=== PATIENT | male | born 1950 | race Caucasian/White ===

== ENCOUNTER → 2019-08-30 | Outpatient (CLI) | payer MEDICARE, OTHER ==
--- NOTE | 2019-08-30 14:41 | REP ---
Clinical: Cough and rib pain . Comparison: None . Technique: PA and lateral. Findings: Evidence of prior sternotomy and cardiac valve repair. No cardiomegaly. Mediastinum is otherwise within normal limits and without obvious adenopathy. Lung chavarria are clear. No consolidation, effusion, or pneumothorax. Possible old healed left lateral rib fractures. Impression: 1. No acute cardiopulmonary process. 2. Possible non-acute lower left lateral rib fractures. Electronically Signed by Amadeo Reno MD 08/30/2019 02:32 P
== END ==
LOC: M RAD 11:31 → M LAB 11:31
PROVIDERS: ATTEND Physician Assistant
DX: S22.42XA Multiple fractures of ribs, left side, initial encounter for closed fracture (principal); X58.XXXA Exposure to other specified factors, initial encounter; Y92.89 Other specified places as the place of occurrence of the external cause; R07.81 Pleurodynia; R05 Cough

== ENCOUNTER → 2020-10-09 | Outpatient (REF) | payer MEDICARE, OTHER ==
[2020-10-09 13:48] LABS: APPEARANCE, URINE CLEAR (CLEAR); BACTERIA, URINE AUTO NEGATIVE (NEGATIVE); BILIRUBIN, URINE AUTO NEGATIVE (NEGATIVE); BLOOD, URINE BLOOD NEGATIVE (NEGATIVE); COLOR, URINE YELLOW (YELLOW); GLUCOSE, URINE (UA) AUTO NEGATIVE (NEGATIVE); KETONE, URINE AUTO NEGATIVE (NEGATIVE); LEUKOCYTE ESTERASE, URINE AUTO NEGATIVE (NEGATIVE); NITRITE, URINE AUTO NEGATIVE (NEGATIVE); PROTEIN, URINE AUTO NEGATIVE (NEGATIVE); RBC, URINE AUTO 1 /HPF (0-3); SPECIFIC GRAVITY URINE AUTO 1.015 (1.002-1.035); SQUAMOUS EPITHELIAL CELL UR AU 0 /HPF (0-6); UROBILINOGEN, URINE AUTO 0.2 mg/dL (0.0-2.0); WBC, URINE AUTO 0 /HPF (0-3)
== END ==
LOC: M SMT 13:03
PROVIDERS: ATTEND Nurse Practitioner Women's Health
DX: N39.41 Urge incontinence (principal)

== ENCOUNTER 2021-03-20 09:20 | Outpatient (CLI) | payer MEDICARE ==
[~2021-03-20] VITALS: Ht 175.3 cm; Wt 100.3 kg
[~2021-03-20 09:20] MED LIST: ALBUTEROL 90 MCG/ACT 8GM HFA INHALER INH PRN; ALBUTEROL SULFATE 2.5 MG/0.5 ML INH NEB SOLN INH PRN; EPINEPHrine INJ 1 MG/ML 1ML AMP IM PRN; NS 1,000 ML IV SCH; diphenhydrAMINE 50MG/ML VIAL (J1200) IV PRN; methylPREDNISolone 125MG 2ML VIAL IV PRN
[2021-03-20 09:57] VITALS: BP 117/69
[2021-03-20] MEDS ORDERED: ACETAMINOPHEN TAB 650MG DOSE (2X325MG) PO PRN (10:00)
[2021-03-20] MEDS ORDERED: CASIRIVIMAB/IMDEVIMAB 1,200 MG in NS 250 ML IV ONE (10:00)
[2021-03-20 10:27] VITALS: BP 112/65
[2021-03-20 10:57] VITALS: BP 140/74
[2021-03-20 11:57] VITALS: BP 157/72
== END 2021-03-20 11:57 | disposition home or self-care (01) ==
LOC: M OPCLI4PR 09:20
PROVIDERS: ATTEND Physician Assistant
DX: U07.1 COVID-19 (principal)

== ENCOUNTER 2024-11-06 03:35 | Inpatient (IN) | payer MEDICARE ==
[~2024-11-06] VITALS: Ht 170.2 cm; Wt 94.1 kg
[2024-11-06] MEDS ORDERED: LOSA100T46 PO (03:54)
[2024-11-06] MEDS ORDERED: HYDR12.55 PO (03:54)
[2024-11-06] MEDS ORDERED: ASPI81CH33 PO (03:54)
[2024-11-06] MEDS ORDERED: VESI10TA2 PO (03:54)
[2024-11-06 04:33] LABS: BASO # 0.0 10^3/uL (0.0-0.2); BASO % 0.3 % (0.0-1.0); EOS # 0.0 10^3/uL (0.0-0.5); EOS % 0.4 % (0.0-3.0); LYMPH # 1.1 10^3/uL (1.5-5.0); LYMPH % 11.6 % (24.0-44.0); MONO % 34.0 % (2.0-8.0); NEUTROPHILS # 4.9 10^3/uL (1.5-8.5); NEUTROPHILS % 52.3 % (36.0-66.0)
[2024-11-06 04:36] LABS: MONO # 3.2 10^3/uL (0.0-0.8); PLATELET COUNT, AUTOMATED 75 10^3/uL (150-450)
[2024-11-06] MEDS: ACETAMINOPHEN *IV* 1,000 MG in IV 1 EA IV ONE (04:47)
[2024-11-06 04:55] LABS: CALCIUM LEVEL 8.5 MG/DL (8.3-10.6); CARBON DIOXIDE LEVEL 27.0 MMOL/L (20-31); CHLORIDE LEVEL 99.0 MMOL/L (98-107); CREATININE FOR GFR 1.12 MG/DL (0.70-1.30); GLOMERULAR FILTRATION RATE 69.4 (>42); POTASSIUM SERUM 3.7 MMOL/L (3.5-5.1); SODIUM LEVEL 135.0 MMOL/L (136-145)
[2024-11-06 05:02] LABS: C REACTIVE PROTEIN QUANTITATIV 12.95 MG/DL (<1.0)
[2024-11-06] MEDS ORDERED: ISOVUE-370 76% 100 ML VIAL As Ordered ONE (05:50)
[2024-11-06] MEDS: CEFTAROLINE FOSAMIL 600 MG in DEXTROSE 5% (D5W) ADV/MINI-BAG 50 ML IV ONE (06:08)
[2024-11-06] MEDS: NS (Normal Saline) 0.9% 1,000 ML IV ONE (06:08)
[2024-11-06] MEDS: IBUPROFEN 600 MG TAB PO ONE (06:59)
[2024-11-06] MEDS ORDERED: HYDR12.510 PO (07:29)
[2024-11-06] MEDS ORDERED: OFLOSO AD (07:31)
[2024-11-06] MEDS ORDERED: DOXY100C3 PO (07:31)
[2024-11-06] MEDS ORDERED: HOME MED LIST COMPLETE! XX SCH (07:35)
[2024-11-06] MEDS ORDERED: VANCOMYCIN HCL 1,000 MG, VIAL MATE ADAPTER 1 EACH in NS 250 ML IV SCH (08:20)
[2024-11-06] MEDS ORDERED: KETOROLAC 30 MG/ML 1 ML VIAL IV ONE (08:20)
[2024-11-06 08:57] LABS: ALT/SGPT 40.0 U/L (7.0-40); AST/SGOT 51.0 U/L (<34)
[2024-11-06] MEDS: MUPIROCIN 2% OINT 22 GM TUBE TOP SCH (09:00)
[2024-11-06] MEDS ORDERED: PIPERACILLIN/TAZOBACTAM SOD 3.375 GM in DEXTROSE 5% (D5W) ADV/MINI-BAG 50 ML IV SCH (09:00)
[2024-11-06 09:14] LABS: INR 1.33
[2024-11-06] MEDS: NS (Normal Saline) 0.9% 1,000 ML IV SCH (09:36)
[2024-11-06] MEDS: LOSARTAN 50 MG TABLET PO SCH (09:36)
[2024-11-06] MEDS: ASPIRIN 81 MG CHEWABLE TABLET PO SCH (09:37)
[2024-11-06] MEDS: VANCOMYCIN HCL 1,750 MG, VIAL MATE ADAPTER 1 EACH in NS 500 ML IV ONE (09:37)
[2024-11-06 10:21] LABS: CHOLESTEROL LEVEL 140.0 MG/DL (<200); CHOLESTEROL RISK RATIO 5.88 (<5); LDL CHOLESTEROL 88.0 MG/DL (<100); NON-HDL-C 116.2 MG/DL; TRIGLYCERIDES LEVEL 141.0 MG/DL (<150)
[2024-11-06 11:11] LABS: ESTIMATED AVERAGE GLUCOSE 114.0 MG/DL (60-110)
[2024-11-06] MEDS: CIPRODEX OTIC SUSP 7.5 ML AD SCH (11:45)
[2024-11-06] MEDS: PIPERACILLIN/TAZOBACTAM SOD 3.375 GM in DEXTROSE 5% (D5W) ADV/MINI-BAG 50 ML IV SCH (12:01)
[2024-11-06] MEDS: ACETAMINOPHEN 325 MG TAB PO PRN (12:44)
[2024-11-06 20:28] VITALS: BP 120/77; TEMP 98.8; O2SAT 90
[2024-11-06] MEDS: VANCOMYCIN HCL 750 MG, VIAL MATE ADAPTER 1 EACH in NS 250 ML IV SCH (20:57)
[2024-11-06 21:24] VITALS: TEMP 100.1
[2024-11-06] MEDS: AZTREONAM 2 GM in DEXTROSE 5% (D5W) MINI-BAG PLU 100 ML IV SCH (22:29)
[2024-11-07 01:51] VITALS: TEMP 97.6
[2024-11-07 04:02] VITALS: BP 119/80; TEMP 100.3; O2SAT 96
[2024-11-07 06:37] LABS: PLATELET COUNT, AUTOMATED 63 10^3/uL (150-450)
[2024-11-07 06:49] LABS: ALT/SGPT 31 U/L (7.0-40); AST/SGOT 39 U/L (<34); CALCIUM LEVEL 7.8 MG/DL (8.3-10.6); CARBON DIOXIDE LEVEL 29 MMOL/L (20-31); CHLORIDE LEVEL 102 MMOL/L (98-107); CREATININE FOR GFR 0.85 MG/DL (0.70-1.30); GLOMERULAR FILTRATION RATE > 90.0 (>42); POTASSIUM SERUM 3.6 MMOL/L (3.5-5.1); SODIUM LEVEL 138 MMOL/L (136-145)
[2024-11-07] MEDS ORDERED: ENOXAPARIN 40 MG/0.4 ML SYRINGE (J1650 PER 10MG) SC SCH (09:00)
[2024-11-07] MEDS: VANCOMYCIN HCL 1,250 MG, VIAL MATE ADAPTER 1 EACH in NS 250 ML IV SCH (09:40)
[2024-11-07 12:00] VITALS: BP 116/75; TEMP 99.6; O2SAT 96
[2024-11-07 19:48] VITALS: BP 109/65; TEMP 98.8; O2SAT 95
[2024-11-07 20:13] LABS: HIV 1&2 SCREEN NEGATIVE (NEGATIVE)
[2024-11-07] MEDS ORDERED: PIPERACILLIN/TAZOBACTAM SOD 3.375 GM in DEXTROSE 5% (D5W) ADV/MINI-BAG 50 ML IV SCH (21:00)
[2024-11-08 04:00] VITALS: BP 125/78; TEMP 98.4; O2SAT 96
[2024-11-08 08:34] LABS: PLATELET COUNT, AUTOMATED 81 10^3/uL (150-450)
[2024-11-08 08:42] LABS: ALT/SGPT 32 U/L (7.0-40); AST/SGOT 37 U/L (<34); CALCIUM LEVEL 8.4 MG/DL (8.3-10.6); CARBON DIOXIDE LEVEL 27 MMOL/L (20-31); CHLORIDE LEVEL 104 MMOL/L (98-107); CREATININE FOR GFR 0.80 MG/DL (0.70-1.30); GLOMERULAR FILTRATION RATE > 90.0 (>42); POTASSIUM SERUM 3.7 MMOL/L (3.5-5.1); SODIUM LEVEL 141 MMOL/L (136-145)
[2024-11-08 12:00] VITALS: BP 121/74; TEMP 98.1; O2SAT 98
[2024-11-08 21:49] VITALS: BP 134/75; TEMP 98.2; O2SAT 98
[2024-11-09 05:11] VITALS: BP 143/88; TEMP 98.2; O2SAT 95
[2024-11-09 06:37] LABS: PLATELET COUNT, AUTOMATED 102 10^3/uL (150-450)
[2024-11-09 06:58] LABS: CALCIUM LEVEL 8.2 MG/DL (8.3-10.6); CARBON DIOXIDE LEVEL 29 MMOL/L (20-31); CHLORIDE LEVEL 104 MMOL/L (98-107); CREATININE FOR GFR 0.86 MG/DL (0.70-1.30); GLOMERULAR FILTRATION RATE > 90.0 (>42); POTASSIUM SERUM 3.8 MMOL/L (3.5-5.1); SODIUM LEVEL 141 MMOL/L (136-145)
[2024-11-09 07:15] LABS: ATYPICAL LYMPH 3 % (0-5); EOSINOPHILS 3 % (0-3); LYMPHOCYTES 27 % (16-44); MONOCYTES 7 % (0-5); MYELOCYTES 2 % (0-0); NEUTROPHILS 58 % (28-66); PLATELET ESTIMATE DECREASED (NORMAL)
[2024-11-09 09:21] VITALS: BP 146/84
[2024-11-09] MEDS ORDERED: CIPR7.5D2 AD (10:34)
[2024-11-09] MEDS ORDERED: VALA1TAB5 PO (10:34)
[2024-11-09] MEDS ORDERED: AMOX875T2 PO (10:34)
[2024-11-09] MEDS ORDERED: MUPI2OI TOP (10:34)
[2024-11-09 12:00] VITALS: BP 134/81; TEMP 98.1; O2SAT 94
[2024-11-10 14:41] LABS: HERPES ZOSTER, VARICELLA IgG 63.4 S/CO (>=1.00)
[2024-11-11 17:32] LABS: VARICELLA ZOSTER VIRUS PCR Detected (Not Detected); VZVSRCE Whole Blood
[2024-11-11 18:38] LABS: HERPES ZOSTER, VARICELLA IgM 1.05 (<=0.90)
[2024-11-11 21:56] LABS: HSV SOURCE Serum; HSV-1 DNA Not Detected (Not Detected); HSV-2 DNA Not Detected (Not Detected)
== END 2024-11-09 13:12 | disposition home or self-care (01) | DRG 596 ==
LOC: M ED 03:35 → M ED INP 08:20 → M MSPAV 13:14
PROVIDERS: ADMIT Internal Medicine; ATTEND Internal Medicine
DX: B02.9 Zoster without complications (principal); L03.211 Cellulitis of face; I10 Essential (primary) hypertension; N40.0 Benign prostatic hyperplasia without lower urinary tract symptoms; L01.00 Impetigo, unspecified; H60.91 Unspecified otitis externa, right ear; D69.6 Thrombocytopenia, unspecified; N32.81 Overactive bladder; Z79.82 Long term (current) use of aspirin; Z79.2 Long term (current) use of antibiotics; Z79.899 Other long term (current) drug therapy; Z85.828 Personal history of other malignant neoplasm of skin; Z95.2 Presence of prosthetic heart valve